=== PATIENT | female | born 1945 | race Caucasian/White ===

== ENCOUNTER → 2017-08-28 | Outpatient (CLI) | payer MEDICARE | END | disposition home or self-care (01) | LOC: CR3 08:00 | PROVIDERS: ATTEND Nurse Practitioner Family ==

== ENCOUNTER 2017-09-25 17:00 | Outpatient (RCR) | payer MEDICARE | END 2017-09-27 | disposition home or self-care (01) | LOC: CR3 17:00 | PROVIDERS: ATTEND Nurse Practitioner Family | DX: Z29.8 Encounter for other specified prophylactic measures (principal) ==

== ENCOUNTER 2017-11-29 08:10 | Outpatient (RCR) | payer MEDICARE | END 2017-12-06 | disposition home or self-care (01) | LOC: CR3 08:10 | PROVIDERS: ATTEND Nurse Practitioner Family | DX: Z29.8 Encounter for other specified prophylactic measures (principal) ==

== ENCOUNTER 2018-01-05 07:47 | Outpatient (RCR) | payer MEDICARE | END 2018-01-07 | disposition home or self-care (01) | LOC: CR3 07:47 | PROVIDERS: ATTEND Nurse Practitioner Family | DX: Z29.8 Encounter for other specified prophylactic measures (principal) ==

== ENCOUNTER 2018-02-07 07:50 | Outpatient (RCR) | payer MEDICARE | END 2018-02-09 | disposition home or self-care (01) | LOC: CR3 07:50 | PROVIDERS: ATTEND Nurse Practitioner Family | DX: Z29.8 Encounter for other specified prophylactic measures (principal) ==

== ENCOUNTER 2018-03-21 08:05 | Outpatient (RCR) | payer MEDICARE | END 2018-03-28 | disposition home or self-care (01) | LOC: CR3 08:05 | PROVIDERS: ATTEND Nurse Practitioner Family | DX: Z29.8 Encounter for other specified prophylactic measures (principal) ==

== ENCOUNTER 2018-04-18 07:46 | Outpatient (RCR) | payer MEDICARE | END 2018-05-04 | disposition home or self-care (01) | LOC: CR3 07:46 | PROVIDERS: ATTEND Nurse Practitioner Family | DX: Z29.8 Encounter for other specified prophylactic measures (principal) ==

== ENCOUNTER 2018-06-15 10:19 | Outpatient (RCR) | payer MEDICARE | END 2018-06-29 | disposition home or self-care (01) | LOC: CR3 10:19 | PROVIDERS: ATTEND Nurse Practitioner Family | DX: Z29.8 Encounter for other specified prophylactic measures (principal) ==

== ENCOUNTER 2018-07-25 08:10 | Outpatient (RCR) | payer MEDICARE | END 2018-08-22 | disposition home or self-care (01) | LOC: CR3 08:10 | PROVIDERS: ATTEND Nurse Practitioner Family | DX: Z29.8 Encounter for other specified prophylactic measures (principal) ==

== ENCOUNTER → 2019-03-06 | Outpatient (CLI) | payer MEDICARE, BC ==
--- NOTE | 2019-03-06 10:46 | Diagnostic Imaging Report ---
INDICATION: ACUTE LEFT-SIDED THORACIC BACK PAIN COMPARISON: None FINDINGS: Frontal and lateral views of the chest demonstrate normal heart size and pulmonary vascularity. The lungs are clear. There are no signs of infiltrate, pleural effusions or pneumothoraces. The visualized osseous structures show no acute abnormalities. Large hiatal hernia is noted. IMPRESSION: 1. No acute process. No signs of infiltrates, effusions or pneumothoraces. 2. Large hiatal hernia. Dictated by: Dictated on workstation # [id number]
== END ==
LOC: RAD FS 10:11
PROVIDERS: ATTEND Nurse Practitioner Family
DX: K44.9 Diaphragmatic hernia without obstruction or gangrene (principal); M54.6 Pain in thoracic spine
CPT/HCPCS: 71046

== ENCOUNTER → 2021-08-31 | Outpatient (CLI) | payer MEDICARE ==
--- NOTE | 2021-08-31 11:01 | Diagnostic Imaging Report ---
CLINICAL INDICATION: Patient is having headaches. EXAM: MRI of the brain performed without IV contrast. Sequences include sagittal T1, axial T2, axial flair, axial gradient echo, DWI, ADC map, and axial T1. COMPARISON: None. FINDINGS: There is no evidence of acute cerebral infarct, intracranial hemorrhage, or gross mass effect. The brain parenchymal volume appears appropriate for patient's age. There are focal, patchy, and confluent areas of high T2 signal white matter changes involving both cerebral hemispheres, likely representing chronic small vessel ischemic disease. There is normal sen-white matter distinction. There is no significant midline shift or herniation. The cra[place] of [place] vascular structures show no gross abnormality as visualized. There is no evidence of hydrocephalus. The basal cisterns are unremarkable. The skull, extracranial soft tissue, and orbits are unremarkable. The paranasal sinuses are unremarkable. Temporal bones show no significant abnormality. IMPRESSION: 1: There is no evidence of acute intracranial process. 2: Mild age-related brain parenchymal changes. Dictated by: Dictated on workstation # [id number]
--- NOTE | 2021-08-31 11:41 | Diagnostic Imaging Report ---
INDICATION: History of neck and mid back pain. COMPARISON: Correlation is limited to a 2 view chest x-ray of 03/06/2019. FINDINGS: Wedged deformity with mild retropulsion in the lower T-spine at what is believed to be T12 is stable when correlated with the previous 2 view chest x-ray and shows no marrow edema or findings of progression at its mid to anterior 3rd. Stature loss is greatest where it was about 70%. The posterior cortex shows mild broad-based bulging of about 3.1 mm. This does not compress the conus or lower thoracic cord. This level is without marrow edema and this fracture is chronic. The remaining thoracic statures are stable and unremarkable. The thoracic spinal cord itself has normal volume, morphology, and signal intensity. No paravertebral mass, hemorrhage, or fluid collection. There is no substantial degree of thoracic canal stenosis. Mid to lower spondylosis with predominantly anteriorly directed osteophyte/disc material present, chronic. A retrocardiac gastric hernia is unchanged from the correlative radiographs. IMPRESSION: 1. 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 No acute or subacute bony injury, unchanged from the correlative chest x-ray of 2019. 2. Normal cord. Normal alignment. No substantial canal or foraminal stenosis. Dictated by: Dictated on workstation # [id number]
== END ==
LOC: RAD 09:01
PROVIDERS: ATTEND Nurse Practitioner Family
DX: S22.088A Other fracture of T11-T12 vertebra, initial encounter for closed fracture (principal); G31.89 Other specified degenerative diseases of nervous system
CPT/HCPCS: 70551; 72146

== ENCOUNTER → 2021-11-02 | Outpatient (CLI) | payer MEDICARE ==
[~2021-11-02] MED LIST: CATHETER FLUSH 10 ML SYR IVP PRN
--- NOTE | 2021-11-02 15:49 | Diagnostic Imaging Report ---
Indication: Abdominal pain. The patient was administered 5.4 mCi technetium 99m Choletec and imaging over the abdomen was performed. At 1 hour the patient ingested 8 ounces of Ensure and the gallbladder ejection fraction was calculated. Patient denied discomfort during the study. There is homogeneous uptake of activity by the liver with prompt excretion of activity into the common duct and gallbladder. There is normal passage of activity into the small bowel. Gallbladder ejection fraction is 61%. Impression: Normal HIDA scan and gallbladder ejection fraction. Dictated by: Dictated on workstation # [id number]
== END ==
LOC: CARD 12:00
PROVIDERS: ATTEND Nurse Practitioner Family
DX: R10.9 Unspecified abdominal pain (principal)
CPT/HCPCS: 78227; A9537

== ENCOUNTER 2022-04-20 11:04 | Emergency (ER) | payer MEDICARE ==
[~2022-04-20] VITALS: Ht 165 cm; Wt 70.0 kg
[2022-04-20 11:22] VITALS: BP 145/62
[2022-04-20 11:49] LABS: BASOPHILS # (AUTO) 0.1 10^3/uL (0.0-0.1); BASOPHILS % (AUTO) 1 % (0-10); EOSINOPHILS # (AUTO) 0.3 10^3/uL (0.0-0.3); EOSINOPHILS % (AUTO) 3 % (0-10); HEMATOCRIT 19 % (35-52); LYMPHOCYTES # (AUTO) 0.7 10^3/uL (1.0-4.0); LYMPHOCYTES % (AUTO) 7 % (12-44); MEAN CORPUSCULAR HEMOGLOBIN 22 pg (25-34); MEAN CORPUSCULAR HGB CONC 28 g/dL (32-36); MEAN CORPUSCULAR VOLUME 78 fL (80-99); MEAN PLATELET VOLUME 10.1 fL (9.0-12.2); MONOCYTES # (AUTO) 0.4 10^3/uL (0.0-1.0); MONOCYTES % (AUTO) 4 % (0-12); NEUTROPHILS # (AUTO) 8.2 10^3/uL (1.8-7.8); NEUTROPHILS % (AUTO) 84 % (42-75); PLATELET COUNT 234 10^3/uL (130-400); WHITE BLOOD COUNT 9.7 10^3/uL (4.3-11.0)
[2022-04-20 11:58] LABS: HEMOGLOBIN 5.4 g/dL (11.5-16.0)
[2022-04-20 12:02] LABS: INR 0.8 (0.8-1.4); PROTHROMBIN TIME PATIENT 11.9 SEC (12.2-14.7)
--- NOTE | 2022-04-20 12:02 | ED General ---
General Chief Complaint: General Problems/Pain Stated Complaint: ABNORMAL LABS Nursing Triage Note: Patient has presented to ER with cc of low hemoglobin - she states 5.2. She had her blood drawn yesterday and was called this morning and told to go to the ER. Source of Information: Patient, Old Records ([facility] records) History of Present Illness Date Seen by Provider: Apr 20, 2022 Time Seen by Provider: 11:09 Initial Comments 76-year-old female presenting with complaints of being told that she had a low hemoglobin of 5.2 and to come for evaluation and possible transfusion. She had been feeling more fatigued and rundown as well as always feeling cold. She started having burning sensation to her tongue. She was seen yesterday in the clinic at [facility] and had lab work done. They called her to let her know that her hemoglobin was low and she needed to have go to the emergency department for evaluation and possible transfusion. She drove herself here to the emergency department to be seen. She states that she has been having dark tarry stools for almost a month. She thought that it was all related to medicines that she was taking such as iron. They started her on Protonix and Carafate yesterday from the clinic. They wanted to try and get her set up for an EGD but she is waiting to hear back from the clinic at this point. She denie s having fever, cough, headache, abdominal pain. She states that she has shortness of breath and gets worse with exertion. She has chills. She denies any pain or burning with urination. Severity: Moderate Modifying Factors: worse with Movement (Activity makes her weak and out of breath) Associated Systoms: No Chest Pain, No Cough, No Diaphoresis, No Headaches, No Loss of Appetite, No Malaise, No Nausea/Vomiting, No Rash, No Seizure; Shortness of Air (With activity); No Syncope; Weakness (Generalized) Allergies and Home Medications Allergies Coded Allergies: No Allergy Information Available (Unverified , 11/02/21) Patient Home Medication List Home Medication List Reviewed: Yes Pantoprazole Sodium (Pantoprazole Sodium) 40 Mg Tablet., 40 MG PO BID Prescribed by: ASHLEY STOUT on 04/20/22 6734 Review of Systems Review of Systems Constitutional: see HPI EENTM: see HPI, mouth pain (Burning sensation to her tongue) Respiratory: see HPI Cardiovascular: No chest pain Gastrointestinal: see HPI Genitourinary: no symptoms reported Musculoskeletal: back pain (Having chronic back and muscle pain since having COVID) Skin: no symptoms reported Psychiatric/Neurological: Denies Headache Hematologic/Lymphatic: Easy Bruising Past Tzbhzpg-[id number]-[id number] Hx Patient Social History Tobacco Use?: No Use of E-Cig and/or Vaping dev: No Substance use?: No Alcohol Use?: No Past Medical History Surgery/Hospitalization HX: Upper GI Bleed, Iron Deficiency Anemia Physical Exam Vital Signs Vital Signs - First Documented 04/20/22 11:22 Temp 36.6 Pulse 85 Resp 20 B/P (MAP) 145/62 (89) Pulse Ox 100 O2 Delivery Nasal Cannula Capillary Refill : Height, Weight, BMI Height: '" Weight: lbs. oz. kg; 25.00 BMI Method: General Appearance: No Apparent Distress, WD/WN HEENT: PERRL/EOMI, Pharynx Normal Neck: Full Range of Motion, Normal Inspection, Non Tender, Supple Respiratory: Chest Non Tender, Lungs Clear, Normal Breath Sounds, No Accessory Muscle Use, No Respiratory Distress Cardiovascular: Regular Rate, Rhythm, Normal Peripheral Pulses, Systolic Murmur Gastrointestinal: Normal Bowel Sounds, No Pulsatile Mass, Non Tender, Soft Rectal: No Black Stool (brown colored stool ); Heme Positive Stool Neurologic/Psychiatric: Alert, Oriented x3 Skin: Normal Color, Warm/Dry Progress/Results/Core Measures Suspected Sepsis SIRS Temperature: Pulse: 85 Respiratory Rate: 20 Laboratory Tests 04/20/22 11:33: White Blood Count 9.7 Blood Pressure 145 /62 Mean: 89 Laboratory Tests 04/20/22 11:33: Creatinine 0.93, INR Comment 0.8, Platelet Count 234, Total Bilirubin 0.2 Results/Orders Lab Results Laboratory Tests Test 04/20/22 11:33 04/20/22 11:35 Range/Units White Blood Count 9.7 4.3-11.0 10^3/uL Red Blood Count 2.45 L 3.80-5.11 10^6/uL Hemoglobin 5.4 *L 11.5-16.0 g/dL Hematocrit 19 *L 35-52 % Mean Corpuscular Volume 78 L 80-99 fL Mean Corpuscular Hemoglobin 22 L 25-34 pg Mean Corpuscular Hemoglobin Concent 28 L 32-36 g/dL Red Cell Distribution Width 17.8 H 10.0-14.5 % Platelet Count 234 130-400 10^3/uL Mean Platelet Volume 10.1 9.0-12.2 fL Immature Granulocyte % (Auto) 0 % Neutrophils (%) (Auto) 84 H 42-75 % Lymphocytes (%) (Auto) 7 L 12-44 % Monocytes (%) (Auto) 4 0-12 % Eosinophils (%) (Auto) 3 0-10 % Basophils (%) (Auto) 1 0-10 % Neutrophils # (Auto) 8.2 H 1.8-7.8 10^3/uL Lymphocytes # (Auto) 0.7 L 1.0-4.0 10^3/uL Monocytes # (Auto) 0.4 0.0-1.0 10^3/uL Eosinophils # (Auto) 0.3 0.0-0.3 10^3/uL Basophils # (Auto) 0.1 0.0-0.1 10^3/uL Immature Granulocyte # (Auto) 0.0 0.0-0.1 10^3/uL Prothrombin Time 11.9 L 12.2-14.7 SEC INR Comment 0.8 0.8-1.4 Activated Partial Thromboplast Time 28 24-35 SEC Sodium Level 136 135-145 MMOL/L Potassium Level 4.6 3.6-5.0 MMOL/L Chloride Level 106 98-107 MMOL/L Carbon Dioxide Level 20 L 21-32 MMOL/L Anion Gap 10 5-14 MMOL/L Blood Urea Nitrogen 28 H 7-18 MG/DL Creatinine 0.93 0.60-1.30 MG/DL Estimat Glomerular Filtration Rate 63 BUN/Creatinine Ratio 30 Glucose Level 104 70-105 MG/DL Calcium Level 9.3 8.5-10.1 MG/DL Corrected Calcium 9.5 8.5-10.1 MG/DL Magnesium Level 2.4 1.6-2.4 MG/DL Total Bilirubin 0.2 0.1-1.0 MG/DL Aspartate Amino Transf (AST/SGOT) 13 5-34 U/L Alanine Aminotransferase (ALT/SGPT) 15 0-55 U/L Alkaline Phosphatase 64 40-136 U/L Total Protein 6.2 L 6.4-8.2 GM/DL Albumin 3.8 3.2-4.5 GM/DL Urine Color DARK YELLOW Urine Clarity CLEAR Urine pH 5.5 5-9 Urine Specific [place] 1.025 H 1.016-1.022 Urine Protein NEGATIVE NEGATIVE Urine Glucose (UA) NEGATIVE NEGATIVE Urine Ketones NEGATIVE NEGATIVE Urine Nitrite NEGATIVE NEGATIVE Urine Bilirubin NEGATIVE NEGATIVE Urine Urobilinogen 0.2 < = 1.0 MG/DL Urine Leukocyte Esterase NEGATIVE NEGATIVE Urine RBC (Auto) NEGATIVE NEGATIVE Urine RBC NONE /HPF Urine WBC 0-2 /HPF Urine Squamous Epithelial Cells RARE /HPF Urine Crystals NONE /LPF Urine Bacteria NEGATIVE /HPF Urine Casts NONE /LPF Urine Mucus NEGATIVE /LPF Urine Culture Indicated NO My Orders Orders - ASHLEY STOUT MD Cbc With Automated Diff (04/20/22:) Magnesium (04/20/22:) Comprehensive Metabolic Panel (04/20/22:) Protime With Inr (04/20/22:) Partial Thromboplastin Time (04/20/22:) O2 (04/20/22:) Monitor-Rhythm Ecg Trace Only (04/20/22:) Ed Iv/Invasive Line Start (04/20/22:23) Fecal Occult Bedside (04/20/22 11:23) Ua Culture If Indicated (04/20/22:23) Obtain Records From (Order) (04/20/22 11:23) Vital Signs/I&O 04/20/22 11:22 Temp 36.6 Pulse 85 Resp 20 B/P (MAP) 145/62 (89) Pulse Ox 100 O2 Delivery Nasal Cannula Capillary Refill : Blood Pressure Mean: 89 Progress Note #1: Progress Note Repeat labs and request records from [facility] to see what her labs showed and what she had been previously for Hgb. Advised that we do not have blood to do a transfusion here or a way to set her up for an EGD. Progress Note #2: Progress Note Labs show continued anemia with hemoglobin at 5.4. Review of notes from [facility] clinic from her visit yesterday showed she did have a hemoglobin of 5.2 from the blood drawn yesterday. In March she was 9.8 for her hemoglobin and in August of this year she was 8.9 for her hemoglobin. She was able to provide stool when she went to the bathroom so a Hemoccult was performed on the brown-colored stool and it was heme positive. As she was hemodynamically stable and not having acute change in her hemoglobin or bright red blood we will try and check about possible transfer to [place] for transfusion as no beds were available at the time at [facility] Call placed to Dr. Snyder at [phone] to check about possible transfer to [place]. He advised that he did not believe they have any beds available and he is going out of town so he would not be available to admit to the hospitalist service. After speaking with the blanket cutting machine operator and nursing supervisor cigarette making department in [place] phone number was obtained for Dr. See the on-call hospitalist. Discussed with him at [phone] and he stated that with the patient being stable he would recommend surgery consult and admit and if they needed medical services they could consult him. We were finally able to reach William Snider from [facility] and she was agreeable to helping arrange outpatient follow up for EGD and Transfusion as outpatient with pt not having acute sudden drop in last 24 hours for her Hgb and she remains hemodynamically stable. Instead of admitting to the hospital we will proceed with outpatient management. Counseled patient on follow-up and return precautions. Stressed importance of being seen right away if she starts having bright red blood to her increasing shortness of breath or dizziness. Increase her Protonix to twice daily dosing for possible gastritis or ulcer with the upper GI bleed. Departure Impression Primary Impression: Upper GI bleed Additional Impression: Anemia due to blood loss, chronic Disposition: 01 HOME, SELF-CARE Condition: Stable Departure-Patient Inst. Decision time for Depature: 14:35 Referrals: WILLIAM SNIDER APRN (PCP) Primary Care Physician [facility] (Family) Primary Care Physician Patient Instructions: Anemia, Possibly From Low Iron, Adult ED, Gastrointestinal Bleeding (DC) Add. Discharge Instructions: Take Protonix or Proton Pump Inhibitor medicine 2 times a day until you can have EGD done to look for bleeding/ulcer in stomach. The clinic will help set up outpatient Transfusion. If having worsening symptoms you could go directly to [place] or [place] to see about possible admit for transfusion and endoscopy to check for bleeding in your GI tract. All discharge instructions reviewed with patient and/or family. Voiced understanding. Scripts Pantoprazole Sodium (Pantoprazole Sodium) 40 Mg Tablet. 40 MG PO BID for GI Bleed for 30 Days, #60 TAB 0 Refills Prov: ASHLEY STOUT MD 04/20/22 ASHLEY STOUT MD Apr 20, 2022 12:02
[2022-04-20 12:09] LABS: POTASSIUM 4.6 MMOL/L (3.6-5.0)
[2022-04-20 12:10] LABS: ALBUMIN 3.8 GM/DL (3.2-4.5); BILIRUBIN,TOTAL 0.2 MG/DL (0.1-1.0); CALCIUM 9.3 MG/DL (8.5-10.1); CREATININE SERUM 0.93 MG/DL (0.60-1.30); MAGNESIUM 2.4 MG/DL (1.6-2.4); TOTAL PROTEIN 6.2 GM/DL (6.4-8.2)
[2022-04-20 12:34] LABS: BILIRUBIN,URINE NEGATIVE (NEGATIVE); GLUCOSE, URINE (UA) NEGATIVE (NEGATIVE); KETONES,URINE NEGATIVE (NEGATIVE); LEUKOCYTE ESTERASE ,URINE NEGATIVE (NEGATIVE); NITRITE,URINE NEGATIVE (NEGATIVE); PH,URINE 5.5 (5-9); PROTEIN,URINE NEGATIVE (NEGATIVE)
[2022-04-20 12:58] LABS: COLOR,URINE DARK YELLOW
[2022-04-20 12:59] LABS: BACTERIA,URINE NEGATIVE /HPF; CLARITY,URINE CLEAR; SQUAMOUS EPITHELIAL CELL,UR RARE /HPF; WBC,URINE 0-2 /HPF
[2022-04-20] MEDS ORDERED: PANT40TA52 PO (14:38)
== END 2022-04-20 14:45 | disposition home or self-care (01) ==
LOC: EDUNIT# 11:04 → ER FS 11:07
DX: K92.2 Gastrointestinal hemorrhage, unspecified (principal); D50.0 Iron deficiency anemia secondary to blood loss (chronic)
CPT/HCPCS: 36415; 80053; 81000; 82274; 83735; 85025; 85610; 85730

== ENCOUNTER → 2022-04-21 | Outpatient (CLI) | payer MEDICARE ==
[~2022-04-21] VITALS: Ht 167 cm; Wt 70.0 kg
[2022-04-21] VITALS (7 sets, daily range): BP systolic 107–156; BP diastolic 59–88
[~2022-04-21] MED LIST changes: +ACETAMINOPHEN 500 MG TAB (TYLENOL) PO ONE; -CATHETER FLUSH 10 ML SYR IVP PRN; +FUROSEMIDE 20 MG (LASIX) TAB PO ONE; +FUROSEMIDE 40 MG (LASIX) TAB PO PRN; +NORMAL SALINE 500 ML IV SCH; +NS IV 500 ML 500 ML IV SCH; +PANT40TA52 PO; +diphenhydrAMINE 25 MG TAB (BENADRYL) PO ONE
[2022-04-21 09:20] LABS: HEMOGLOBIN 4.9 g/dL (11.5-16.0)
[2022-04-21 12:51] LABS: HEMOGLOBIN 6.3 g/dL (11.5-16.0)
[2022-04-21 15:36] LABS: HEMOGLOBIN 7.1 g/dL (11.5-16.0)
== END ==
LOC: SDC 08:40
PROVIDERS: ATTEND Nurse Practitioner Family
DX: D64.9 Anemia, unspecified (principal)
CPT/HCPCS: 36430; 85014; 85018; 86850; 86900; 86901; 86920; P9016; 36415